=== PATIENT | male | born 1990 | race Caucasian/White ===

== ENCOUNTER 2020-06-25 16:39 | Emergency (ER) | payer MEDICARE, MEDICAID ==
[2020-06-25] MEDS ORDERED: Lorazepam 2 MG/ML VIAL ONE (17:37)
[2020-06-25] MEDS ORDERED: Sodium Chloride 0.9% 1,000 ML ONE (17:37)
[2020-06-25 17:40] LABS: #Basophils 0.1 thou/uL (0.0-0.2); #Eosinphils 0.5 thou/uL (0.0-0.7); #Lymphocytes 2.8 thou/uL (1.20-3.40); #Monocytes 0.9 thou/uL (0.11-0.59); #Neutrophils 7.5 thou/uL (1.40-6.50); %Basophils 1.2 % (0.0-1.0); %Eosinophils 4.5 % (0.0-10.0); %Lymphocytes 23.7 % (21.0-51.0); %Monocytes 7.6 % (0.0-10.0); Hemoglobin 16.3 g/dL (14.0-18.0); Mean Corpuscular HGB CONC 31.7 g/dL (32.0-36.0); Mean Corpuscular Volume 94.9 fL (78.0-98.0); Mean Platelet Volume 8.8 fL (7.4-10.4); Platelet Count 308 thou/uL (130-400); RBC Distribution Width 12.8 % (11.5-14.5); Red Blood Cell (RBC) Count 5.42 mill/uL (4.70-6.10); White Blood Cell (WBC) Count 11.9 thou/uL (4.8-10.8)
== END 2020-06-25 19:37 | disposition home or self-care (01) ==
LOC: MADERS 16:39
DX: T63.301A Toxic effect of unspecified spider venom, accidental (unintentional), initial encounter (principal); F17.210 Nicotine dependence, cigarettes, uncomplicated
CPT/HCPCS: 82550; 83605; 85025; 96374; J2060; J7050

== ENCOUNTER 2020-09-26 18:04 | Emergency (ER) | payer MEDICARE, MEDICAID ==
[2020-09-26] MEDS ORDERED: predniSONE 20 MG TAB ONE (18:59)
== END 2020-09-26 19:04 | disposition home or self-care (01) ==
LOC: MADERS 18:04
DX: L25.9 Unspecified contact dermatitis, unspecified cause (principal); F17.210 Nicotine dependence, cigarettes, uncomplicated
CPT/HCPCS: 99282; J7512

== ENCOUNTER 2020-11-23 08:29 | Emergency (ER) | payer MEDICARE, MEDICAID ==
[2020-11-23] MEDS ORDERED: Ondansetron ODT 4 MG TAB ONE (08:45)
[2020-11-23] MEDS ORDERED: Ibuprofen 800 MG TAB ONE (08:56)
[2020-11-24 12:57] LABS: SARS-CoV-2 PCR by NAA Not Detected (NotDetected)
== END 2020-11-23 09:08 | disposition home or self-care (01) ==
LOC: MADERS 08:29
DX: R05 Cough (principal); R53.1 Weakness; R11.2 Nausea with vomiting, unspecified; R19.7 Diarrhea, unspecified; R51.9 Headache, unspecified; M79.10 Myalgia, unspecified site; M25.50 Pain in unspecified joint; Z20.822 Contact with and (suspected) exposure to COVID-19; E78.5 Hyperlipidemia, unspecified; E78.00 Pure hypercholesterolemia, unspecified; F17.210 Nicotine dependence, cigarettes, uncomplicated
CPT/HCPCS: 99283; Q0162; U0003; U0005

== ENCOUNTER 2021-04-12 16:23 | Emergency (ER) | payer MEDICARE, MEDICAID ==
[2021-04-12] MEDS ORDERED: Ibuprofen 800 MG TAB ONE (17:07)
== END 2021-04-12 17:15 | disposition home or self-care (01) ==
LOC: EEVIPCON 16:23 → MADERS 16:23
DX: S60.221A Contusion of right hand, initial encounter (principal); F17.210 Nicotine dependence, cigarettes, uncomplicated; E78.5 Hyperlipidemia, unspecified; W20.8XXA Other cause of strike by thrown, projected or falling object, initial encounter
CPT/HCPCS: 99283

== ENCOUNTER 2021-04-27 10:12 | Emergency (ER) | payer OTHER, MEDICARE, MEDICAID | END 2021-04-27 11:09 | disposition home or self-care (01) | LOC: MADERS 10:12 | DX: S60.221A Contusion of right hand, initial encounter (principal); E78.5 Hyperlipidemia, unspecified; F17.210 Nicotine dependence, cigarettes, uncomplicated; W01.0XXA Fall on same level from slipping, tripping and stumbling without subsequent striking against object, initial encounter ==

== ENCOUNTER 2021-05-09 11:21 | Emergency (ER) | payer MEDICARE, MEDICAID | END 2021-05-09 12:48 | disposition home or self-care (01) | LOC: MADERS 11:21 | DX: G56.03 Carpal tunnel syndrome, bilateral upper limbs (principal); M65.4 Radial styloid tenosynovitis [de Quervain]; R20.0 Anesthesia of skin; R03.0 Elevated blood-pressure reading, without diagnosis of hypertension; F17.210 Nicotine dependence, cigarettes, uncomplicated; E78.5 Hyperlipidemia, unspecified; J45.909 Unspecified asthma, uncomplicated | CPT/HCPCS: 36416; 99284 ==

== ENCOUNTER 2021-07-29 09:48 | Emergency (ER) | payer MEDICARE, MEDICAID ==
[2021-07-29 10:16] LABS: Bilirubin Moderate (Negative); Blood, Urine Negative (Negative); Clarity Clear (Clear); Glucose, Urine (Dipstick) Negative (Negative); Ketone, Urine Trace mg/dL (Negative); Leukocyte Negative (Negative); Nitrite Negative (Negative); Protein, Urine (Dipstick) Negative (Neg-Trace); Urobilinogen 0.2 mg/dL (Less than 2)
[2021-07-29] MEDS ORDERED: Lactated Ringer's 1,000 ML ONE (10:32)
[2021-07-29] MEDS ORDERED: Ondansetron PF 4 MG/2 ML Vial ONE (10:32)
[2021-07-29] MEDS ORDERED: Mag-Al Plus 1200 MG/1200 MG/120 MG/30 ML UDCUP ONE (10:32)
[2021-07-29] MEDS ORDERED: Lidocaine Viscous Sol 2% 15 ml UD Cup ONE (10:32)
[2021-07-29] MEDS ORDERED: Famotidine/PF 20 mg/2ml Vial ONE (10:32)
[2021-07-29 10:38] LABS: #Basophils 0.2 thou/uL (0.0-0.2); #Eosinphils 0.5 thou/uL (0.0-0.7); #Lymphocytes 2.8 thou/uL (1.20-3.40); #Neutrophils 7.4 thou/uL (1.40-6.50); %Basophils 1.4 % (0.0-1.0); %Eosinophils 4.2 % (0.0-10.0); %Lymphocytes 23.6 % (21.0-51.0); %Monocytes 8.2 % (0.0-10.0); %Neutrophils 62.6 % (42.0-75.0); Hemoglobin 15.8 g/dL (14.0-18.0); Mean Corpuscular HGB CONC 32.1 g/dL (32.0-36.0); Mean Corpuscular Volume 90.5 fL (78.0-98.0); Mean Platelet Volume 9.7 fL (7.4-10.4); Platelet Count 257 thou/uL (130-400); RBC Distribution Width 12.9 % (11.5-14.5); Red Blood Cell (RBC) Count 5.43 mill/uL (4.70-6.10); White Blood Cell (WBC) Count 11.7 thou/uL (4.8-10.8)
[2021-07-29 10:41] LABS: Prothrombin Time 12.8 sec (12.0-14.7)
[2021-07-29 10:42] LABS: PTT 30.3 sec (22.9-36.1)
[2021-07-29 10:51] LABS: ALT (SGPT) 16 U/L (8-55); AST (SGOT) 22 U/L (5-34); Albumin 4.4 g/dL (3.5-5.0); Alkaline Phosphatase 91 U/L (40-110); Anion Gap 17 mmol/L (10-20); BUN (Urea Nitrogen) 13 mg/dL (8.9-20.6); Bilirubin, Total 0.5 mg/dL (0.2-1.2); Calc. Creatinine Clearance 0 mL/min (70-130); Calcium 10.1 mg/dL (7.8-10.44); Carbon Dioxide 24 mmol/L (22-29); Chloride 104 mmol/L (98-107); Globulin 3.3 g/dL (2.4-3.5); Glucose 84 mg/dL (70-105); Lipase 66 U/L (8-78); Potassium 3.9 mmol/L (3.5-5.1); Protein, Total 7.7 g/dL (6.0-8.3); Sodium 141 mmol/L (136-145)
[2021-07-29] MEDS ORDERED: Nicotine 7 MG PATCH ONE (11:30)
== END 2021-07-29 11:57 | disposition home or self-care (01) ==
LOC: MADERS 09:48
DX: R10.13 Epigastric pain (principal); R11.2 Nausea with vomiting, unspecified; E78.5 Hyperlipidemia, unspecified; F17.210 Nicotine dependence, cigarettes, uncomplicated
CPT/HCPCS: 76705; 80053; 81003; 82274; 83605; 83690; 85025; 85610; 85730; 94760; 96361; 96374; 96375; J2405; J7120; S0028

== ENCOUNTER 2021-08-08 09:10 | Emergency (ER) | payer MEDICARE, MEDICAID ==
[2021-08-08] MEDS ORDERED: diphenhydrAMINE 25 MG CAP ONE (09:35)
[2021-08-08] MEDS ORDERED: Dexamethasone 10 MG/ML VIAL ONE (09:35)
== END 2021-08-08 10:03 | disposition home or self-care (01) ==
LOC: MADERS 09:10
DX: T63.481A Toxic effect of venom of other arthropod, accidental (unintentional), initial encounter (principal); J45.909 Unspecified asthma, uncomplicated; E78.5 Hyperlipidemia, unspecified; E78.00 Pure hypercholesterolemia, unspecified; F17.210 Nicotine dependence, cigarettes, uncomplicated; Z79.899 Other long term (current) drug therapy
CPT/HCPCS: 96372; 99283; J1100

== ENCOUNTER 2022-03-01 15:59 | Emergency (ER) | payer MEDICARE, MEDICAID ==
[2022-03-01] MEDS ORDERED: Acetaminophen 325 MG TAB ONE (16:29)
[2022-03-01] MEDS ORDERED: Ibuprofen 800 MG TAB ONE (16:29)
== END 2022-03-01 17:08 | disposition home or self-care (01) ==
LOC: MADERS 15:59
DX: M25.532 Pain in left wrist (principal); E78.00 Pure hypercholesterolemia, unspecified; F17.210 Nicotine dependence, cigarettes, uncomplicated
CPT/HCPCS: 99283

== ENCOUNTER 2022-05-28 21:05 | Emergency (ER) | payer MEDICARE, MEDICAID ==
[2022-05-28] MEDS ORDERED: Ketorolac Tromethamine 60 MG/2 ML VIAL ONE (22:16)
== END 2022-05-28 22:40 | disposition home or self-care (01) ==
LOC: MADERS 21:05
DX: S69.92XA Unspecified injury of left wrist, hand and finger(s), initial encounter (principal); E78.00 Pure hypercholesterolemia, unspecified; F17.210 Nicotine dependence, cigarettes, uncomplicated; W22.01XA Walked into wall, initial encounter
CPT/HCPCS: 29125; 96372; J1885

== ENCOUNTER 2022-06-25 18:35 | Emergency (ER) | payer MEDICARE, MEDICAID | END 2022-06-25 19:19 | disposition home or self-care (01) | LOC: MADERS 18:35 | DX: A60.01 Herpesviral infection of penis (principal); E78.00 Pure hypercholesterolemia, unspecified; F17.210 Nicotine dependence, cigarettes, uncomplicated | CPT/HCPCS: 87081; 87430; 99283 ==

== ENCOUNTER 2022-09-12 12:29 | Emergency (ER) | payer MEDICARE, MEDICAID ==
[2022-09-12] MEDS ORDERED: Ibuprofen 800 MG TAB ONE (15:20)
== END 2022-09-12 15:41 | disposition short-term general hospital (02) ==
LOC: MADERS 12:29
DX: S93.492A Sprain of other ligament of left ankle, initial encounter (principal); E78.5 Hyperlipidemia, unspecified; E78.00 Pure hypercholesterolemia, unspecified; F17.290 Nicotine dependence, other tobacco product, uncomplicated; Z79.899 Other long term (current) drug therapy; W08.XXXA Fall from other furniture, initial encounter

== ENCOUNTER 2023-01-14 12:31 | Emergency (ER) | payer MEDICAID, MEDICARE ==
[~2023-01-14 12:31] MED LIST: Iopamidol 370 76% 100 ML VIAL ONE
[2023-01-14] MEDS ORDERED: Sodium Chloride 0.9% 1,000 ML ONE (13:25)
[2023-01-14] MEDS ORDERED: Dicyclomine 10 MG CAP ONE (13:25)
[2023-01-14] MEDS ORDERED: Ondansetron PF 4 MG/2 ML Vial ONE (13:25)
[2023-01-14 13:54] LABS: Hematocrit 48.5 % (42.0-52.0); Hemoglobin 15.5 g/dL (14.0-18.0); Mean Corpuscular Volume 96.9 fl (78.0-98.0); Mean Platelet Volume 9.7 fL (7.4-10.4); Platelet Count 271 10x3/uL (130-400); RBC Distribution Width 13.3 % (11.5-14.5); Red Blood Cell (RBC) Count 5.01 mill/uL (4.70-6.10)
[2023-01-14 13:55] LABS: Band 3 % (5-11); Eosinophils 3 % (0-10); Lymphocytes 8 % (21-51); MDiff Complete? YES; Monocytes 4 % (0-10); Neutrophil 78 % (42-75); RBC Morph Comment Within Normal Limits; Reactive Lymphocytes 4 % (0-10)
[2023-01-14 13:56] LABS: Platelet Adequacy Comment Appears Adequate
[2023-01-14 13:58] LABS: ALT (SGPT) 18 U/L (8-55); AST (SGOT) 21 U/L (5-34); Albumin 4.2 g/dL (3.5-5.0); Alkaline Phosphatase 83 U/L (40-110); Anion Gap 14 mmol/L (10-20); BUN (Urea Nitrogen) 15 mg/dL (8.9-20.6); Bilirubin, Total 0.2 mg/dL (0.2-1.2); Calc. Creatinine Clearance 0 mL/min (70-130); Calcium 9.3 mg/dL (7.8-10.44); Carbon Dioxide 22 mmol/L (22-29); Chloride 107 mmol/L (98-107); Estimated GFR 122; Globulin 3.5 g/dL (2.4-3.5); Glucose 85 mg/dL (70-105); Lipase 34 U/L (8-78); Magnesium 1.9 mg/dL (1.6-2.6); Potassium 4.2 mmol/L (3.5-5.1); Protein, Total 7.7 g/dL (6.0-8.3); Sodium 139 mmol/L (136-145)
[2023-01-14] MEDS ORDERED: Azithromycin 250 MG TAB ONE (15:02)
== END 2023-01-14 15:12 | disposition home or self-care (01) ==
LOC: MADERS 12:31
DX: K52.9 Noninfective gastroenteritis and colitis, unspecified (principal); R11.0 Nausea; E78.00 Pure hypercholesterolemia, unspecified; F17.290 Nicotine dependence, other tobacco product, uncomplicated
CPT/HCPCS: 74177; 80053; 83690; 83735; 85025; 94760; 96361; 96374; J2405; J7050; Q9967

== ENCOUNTER 2023-07-22 16:50 | Emergency (ER) | payer MEDICARE ==
[2023-07-22] MEDS ORDERED: Acyclovir 200 mg Capsule ONE (19:55)
== END 2023-07-22 20:17 | disposition home or self-care (01) ==
LOC: MADERS 16:50
DX: B02.9 Zoster without complications (principal); F17.220 Nicotine dependence, chewing tobacco, uncomplicated; F17.210 Nicotine dependence, cigarettes, uncomplicated
CPT/HCPCS: 99282

== ENCOUNTER 2023-09-15 11:17 | Emergency (ER) | payer MEDICARE, OTHER ==
[2023-09-15] MEDS ORDERED: Ketorolac Tromethamine 10 MG TAB ONE (12:33)
[2023-09-15] MEDS ORDERED: Lidocaine 1% PF 5 ML VIAL ONE (12:33)
[2023-09-15] MEDS ORDERED: cefTRIAXone (ROCEPHIN) 1 GM VIAL ONE (12:33)
[2023-09-15] MEDS ORDERED: Boostrix 0.5 ML (Tdap) VIAL (>/=7 yrs of age) ONE (12:33)
== END 2023-09-15 13:51 | disposition home or self-care (01) ==
LOC: MADERS 11:17
DX: S69.91XA Unspecified injury of right wrist, hand and finger(s), initial encounter (principal); F17.220 Nicotine dependence, chewing tobacco, uncomplicated; F17.290 Nicotine dependence, other tobacco product, uncomplicated; E78.00 Pure hypercholesterolemia, unspecified; Z23 Encounter for immunization; Z79.899 Other long term (current) drug therapy; X58.XXXA Exposure to other specified factors, initial encounter
CPT/HCPCS: 90471; 90715; 96372; J0696

== ENCOUNTER 2024-11-23 09:27 | Emergency (ER) | payer MEDICARE | END 2024-11-23 10:14 | disposition home or self-care (01) | LOC: MADERS 09:27 | DX: S60.022A Contusion of left index finger without damage to nail, initial encounter (principal); L73.9 Follicular disorder, unspecified; A60.00 Herpesviral infection of urogenital system, unspecified; F90.9 Attention-deficit hyperactivity disorder, unspecified type; F17.220 Nicotine dependence, chewing tobacco, uncomplicated; W22.09XA Striking against other stationary object, initial encounter | CPT/HCPCS: 99283 ==

== ENCOUNTER 2025-01-03 10:23 | Emergency (ER) | payer MEDICARE | END 2025-01-03 10:56 | disposition home or self-care (01) | LOC: MADERS 10:23 | DX: S01.111D Laceration without foreign body of right eyelid and periocular area, subsequent encounter (principal); J45.909 Unspecified asthma, uncomplicated; E78.00 Pure hypercholesterolemia, unspecified ==